=== PATIENT | female | born 1945 | race Two or more races ===

== ENCOUNTER → 2019-03-08 | Outpatient (CLI) | payer OTHER ==
[~2019-03-08] VITALS: Ht 121.9 cm; Wt 99.0 kg
[~2019-03-08] MED LIST: ACET-2744 PO; B CO1TAB4 PO; BUME1TAB34 PO; CARB15DR OP; IRON-24 PO; LEVO25TA9 PO; LIDOCAINE 4% 50 ML SOLUTION TP ONE; LINA5TAB PO; MELA5TAB3 PO; METO25XL PO; RANI150T7 PO; SENN-176 PO; SPIR25 PO
[2019-03-08 10:25] VITALS: BP 107/67
== END | disposition home or self-care (01) ==
LOC: HBOWC 09:32
PROVIDERS: ATTEND Podiatrist
DX: E11.622 Type 2 diabetes mellitus with other skin ulcer (principal); L97.822 Non-pressure chronic ulcer of other part of left lower leg with fat layer exposed; I87.2 Venous insufficiency (chronic) (peripheral); L60.2 Onychogryphosis
CPT/HCPCS: 11042; G0463

== ENCOUNTER → 2019-03-15 | Outpatient (CLI) | payer OTHER ==
[~2019-03-15] MED LIST changes: +LIDOCAINE 2% 5 ML JELLY TP ONE; -LIDOCAINE 4% 50 ML SOLUTION TP ONE
[2019-03-15 11:11] VITALS: BP 138/68
== END | disposition home or self-care (01) ==
LOC: HBOWC 09:47
PROVIDERS: ATTEND Podiatrist
DX: E11.622 Type 2 diabetes mellitus with other skin ulcer (principal); L97.822 Non-pressure chronic ulcer of other part of left lower leg with fat layer exposed; I87.2 Venous insufficiency (chronic) (peripheral); L60.2 Onychogryphosis
CPT/HCPCS: 11042; 97598

== ENCOUNTER → 2019-03-29 | Outpatient (CLI) | payer OTHER ==
[~2019-03-29] MED LIST changes: -LIDOCAINE 2% 5 ML JELLY TP ONE; +LIDOCAINE 4% 50 ML SOLUTION TP ONE
[2019-03-29 10:25] VITALS: BP 147/87
== END | disposition home or self-care (01) ==
LOC: HBOWC 10:21
PROVIDERS: ATTEND Podiatrist
DX: E11.622 Type 2 diabetes mellitus with other skin ulcer (principal); L97.822 Non-pressure chronic ulcer of other part of left lower leg with fat layer exposed; I87.2 Venous insufficiency (chronic) (peripheral); L60.2 Onychogryphosis
CPT/HCPCS: 11042

== ENCOUNTER → 2019-04-05 | Outpatient (CLI) | payer OTHER ==
[2019-04-05 10:12] VITALS: BP 141/78
== END | disposition home or self-care (01) ==
LOC: HBOWC 09:34
PROVIDERS: ATTEND Podiatrist
DX: E11.622 Type 2 diabetes mellitus with other skin ulcer (principal); L97.822 Non-pressure chronic ulcer of other part of left lower leg with fat layer exposed; I87.2 Venous insufficiency (chronic) (peripheral); L60.2 Onychogryphosis
CPT/HCPCS: 11042

== ENCOUNTER → 2019-04-10 | Outpatient (CLI) | payer OTHER ==
[~2019-04-10] MED LIST changes: +SODIUM HYPOCHLORITE 0.25% [HALF STRENGTH] 473 ML SOLUTION TP ONE
[2019-04-10 08:00] VITALS: BP 104/56
== END | disposition home or self-care (01) ==
LOC: HBOWC 07:50
PROVIDERS: ATTEND Internal Medicine
DX: E11.622 Type 2 diabetes mellitus with other skin ulcer (principal); L97.822 Non-pressure chronic ulcer of other part of left lower leg with fat layer exposed; I87.2 Venous insufficiency (chronic) (peripheral); L60.2 Onychogryphosis
CPT/HCPCS: 11042

== ENCOUNTER → 2019-04-19 | Outpatient (CLI) | payer OTHER ==
[~2019-04-19] MED LIST changes: -SODIUM HYPOCHLORITE 0.25% [HALF STRENGTH] 473 ML SOLUTION TP ONE
[2019-04-19 09:16] VITALS: BP 124/60
== END | disposition home or self-care (01) ==
LOC: HBOWC 08:44
PROVIDERS: ATTEND Podiatrist
DX: E11.622 Type 2 diabetes mellitus with other skin ulcer (principal); L97.222 Non-pressure chronic ulcer of left calf with fat layer exposed; I87.2 Venous insufficiency (chronic) (peripheral); L60.2 Onychogryphosis
CPT/HCPCS: 11042

== ENCOUNTER → 2019-04-26 | Outpatient (CLI) | payer OTHER ==
[2019-04-26 09:00] VITALS: BP 108/63
== END | disposition home or self-care (01) ==
LOC: HBOWC 09:09
PROVIDERS: ATTEND Podiatrist
DX: E11.622 Type 2 diabetes mellitus with other skin ulcer (principal); L97.222 Non-pressure chronic ulcer of left calf with fat layer exposed; L97.822 Non-pressure chronic ulcer of other part of left lower leg with fat layer exposed; I87.2 Venous insufficiency (chronic) (peripheral); L60.2 Onychogryphosis
CPT/HCPCS: 11042

== ENCOUNTER → 2019-05-08 | Outpatient (CLI) | payer OTHER ==
[~2019-05-08] MED LIST changes: -LIDOCAINE 4% 50 ML SOLUTION TP ONE
[2019-05-08 11:10] VITALS: BP 124/65
== END | disposition home or self-care (01) ==
LOC: HBOWC 10:53
PROVIDERS: ATTEND Internal Medicine
DX: E11.622 Type 2 diabetes mellitus with other skin ulcer (principal); L97.222 Non-pressure chronic ulcer of left calf with fat layer exposed; L97.822 Non-pressure chronic ulcer of other part of left lower leg with fat layer exposed; I87.2 Venous insufficiency (chronic) (peripheral); L60.2 Onychogryphosis
CPT/HCPCS: 11042

== ENCOUNTER → 2019-05-17 | Outpatient (CLI) | payer OTHER ==
[~2019-05-17] MED LIST changes: +LIDOCAINE 4% 50 ML SOLUTION TP ONE
[2019-05-17 09:21] VITALS: BP 145/91
== END | disposition home or self-care (01) ==
LOC: HBOWC 08:58
PROVIDERS: ATTEND Podiatrist
DX: E11.622 Type 2 diabetes mellitus with other skin ulcer (principal); L97.222 Non-pressure chronic ulcer of left calf with fat layer exposed; L97.822 Non-pressure chronic ulcer of other part of left lower leg with fat layer exposed; I87.2 Venous insufficiency (chronic) (peripheral); L60.2 Onychogryphosis
CPT/HCPCS: 11042

== ENCOUNTER → 2019-05-29 | Outpatient (CLI) | payer OTHER ==
[~2019-05-29] MED LIST changes: -LIDOCAINE 4% 50 ML SOLUTION TP ONE
[2019-05-29 08:19] VITALS: BP 138/84
== END | disposition home or self-care (01) ==
LOC: HBOWC 07:58
PROVIDERS: ATTEND Internal Medicine
DX: E11.622 Type 2 diabetes mellitus with other skin ulcer (principal); L97.222 Non-pressure chronic ulcer of left calf with fat layer exposed; I87.2 Venous insufficiency (chronic) (peripheral); E11.51 Type 2 diabetes mellitus with diabetic peripheral angiopathy without gangrene; L60.2 Onychogryphosis
CPT/HCPCS: 11042

== ENCOUNTER → 2019-06-05 | Outpatient (CLI) | payer OTHER ==
[2019-06-05 09:58] VITALS: BP 144/77
== END | disposition home or self-care (01) ==
LOC: HBOWC 09:15
PROVIDERS: ATTEND Internal Medicine
DX: E11.622 Type 2 diabetes mellitus with other skin ulcer (principal); L97.222 Non-pressure chronic ulcer of left calf with fat layer exposed; I87.2 Venous insufficiency (chronic) (peripheral); E11.51 Type 2 diabetes mellitus with diabetic peripheral angiopathy without gangrene; L60.2 Onychogryphosis; I63.9 Cerebral infarction, unspecified
CPT/HCPCS: 11042

== ENCOUNTER → 2019-06-19 | Outpatient (CLI) | payer OTHER ==
[2019-06-19 09:15] VITALS: BP 128/70
== END | disposition home or self-care (01) ==
LOC: HBOWC 08:33
PROVIDERS: ATTEND Internal Medicine
DX: E11.622 Type 2 diabetes mellitus with other skin ulcer (principal); L97.228 Non-pressure chronic ulcer of left calf with other specified severity; I87.2 Venous insufficiency (chronic) (peripheral); E11.51 Type 2 diabetes mellitus with diabetic peripheral angiopathy without gangrene; L60.2 Onychogryphosis; I63.9 Cerebral infarction, unspecified